=== PATIENT | male | born 1990 | race American Indian/Alaskan Native ===

== ENCOUNTER 2022-01-08 09:01 | Emergency (ER) | payer OTHER ==
[~2022-01-08] VITALS: Ht 177.8 cm; Wt 83.9 kg
[~2022-01-08 09:01] MED LIST: ACYCLOVIR200 MG PO; AMOX TR-K CLV1 EACH PO; LORTAB 10 MG-3473 ML PO; NYSTATIN100000 UN1 PO
== END 2022-01-08 10:25 | disposition home or self-care (01) ==
LOC: ED 09:01
DX: S43.52XA Sprain of left acromioclavicular joint, initial encounter (principal); V00.831A Fall from motorized mobility scooter, initial encounter
CPT/HCPCS: 73030